=== PATIENT | female | born 1935 | race Caucasian/White ===

== ENCOUNTER 2017-01-19 13:58 | Emergency (ER) | payer MEDICARE, MEDICAID ==
[2017-01-19 13:59] VITALS: BMI 29.9
[2017-01-19 14:23] VITALS: PULSE 45; RESP 20
--- NOTE | 2017-01-19 16:04 | C.PDOC ---
History Of Present Illness 82-year-old female presents to the emergency department with complaints of back pain that radiates to right leg for the past four days. Patient states she is taking Tylenol and Celebrex with minimal relied. Patient denies falls/injuries , sensory changes in LEs, dysuria, urinary retention, bladder or bowel incontinence, fever. Time Seen by Provider: 01/19/17 14:40 Chief Complaint (Nursing): Lower Extremity Problem/Injury History Per: Patient History/Exam Limitations: no limitations Current Symptoms Are (Timing): Still Present Severity: Moderate Past Medical History Reviewed: Historical Data, Nursing Documentation, Vital Signs Vital Signs: Last Vital Signs Temp 97.4 F L 01/19/17 16:56 Pulse 45 L 01/19/17 16:56 Resp 20 01/19/17 16:56 BP 180/66 H 01/19/17 16:56 Pulse Ox 99 01/19/17 18:33 - Medical History PMH: Arthritis, Asthma, Bronchitis, Gastritis, HTN Surgical History: Hernia Repair, Tonsillectomy, - [facility] Procedures NAIL REMOVAL (06/23/14) Family History: States: No Known Family Hx - Social History Hx Tobacco Use: No Hx Alcohol Use: No Hx Substance Use: No - Immunization History Hx Tetanus Toxoid Vaccination: No Hx Influenza Vaccination: No Hx Pneumococcal Vaccination: No Review Of Systems Except As Marked, All Systems Reviewed And Found Negative. Constitutional: Negative for: Fever Cardiovascular: Negative for: Chest Pain, Palpitations Respiratory: Negative for: Cough, Shortness of Breath Gastrointestinal: Negative for: Nausea, Vomiting, Abdominal Pain, Diarrhea Musculoskeletal: Positive for: Back Pain, Leg Pain Skin: Negative for: Rash Physical Exam - Physical Exam Appears: Well, Non-toxic, No Acute Distress (mild-moderate pain) Skin: Warm, Dry, No Rash Head: Normacephalic Eye(s): bilateral: Normal Inspection Oral Mucosa: Moist Lips: Normal Appearing Neck: Normal, Normal ROM, No Midline Cervical Tenderness, No Paracervical Tenderness, No Step Off Deformity, Supple Cardiovascular: Rhythm Regular (Bradycardic), No Murmur Respiratory: Normal Breath Sounds, No Rales, No Rhonchi, No Wheezing Gastrointestinal/Abdominal: Normal Exam, Bowel Sounds, Soft, No Tenderness Back: No CVA Tenderness, No Vertebral Tenderness, Paraspinal Tenderness (Right) Extremity: Tenderness (Mild, gluteal.), No Pedal Edema, No Calf Tenderness Extremity: Bilateral: Atraumatic, Normal Color And Temperature, Normal ROM Neurological/Psych: Oriented x3, Normal Motor, Normal Sensation Gait: Steady ED Course And Treatment ECG: Interpreted By Me, Viewed By Me (sinus bradycardia 51bpm, normal axis, no acute ST/T wave changes) ECG Interpretation: No Acute Changes O2 Sat by Pulse Oximetry: 99 (RA) Pulse Ox Interpretation: Normal Progress Note: Patient given PO flexeril and IM toradol. EKG ordered and reviewed. Reevaluation Time: 16:45 Reassessment Condition: Improved (Patient reassessed, currently resting comfortably, in no pain/distress. She states her symptoms have improved and she feels better. Patient ambulating normally in ED. She is comfortable being discharged home, was given Rx for naprosyn and flexeril. She was instructed to follow up with PMD/clinic in 1-2 days, and she understands she should return to ED if symptoms return/worsen.) Disposition Counseled Patient/Family Regarding: Diagnosis, Need For Followup, Rx Given - Disposition Referrals: Theodore Rice MD [Medical Doctor] - Disposition: HOME/ ROUTINE Disposition Time: 16:45 Condition: STABLE Additional Instructions: SEGUIMIENTO CON BENITEZ DOCTOR / CLNICA EN 1-2 COLLINS USE LOS MEDICAMENTOS QUE ADRIAN NECESARIOS PARA EL DOLOR DEVUELVA A LA CHARLES DE EMERGENCIA SI TIENE CUALQUIER SNTOMA PREOCUPANTES Prescriptions: Cyclobenzaprine [Cyclobenzaprine HCl] 10 mg PO BID PRN #12 tab PRN Reason: pain/muscle Naproxen [Naprosyn Tab] 375 mg PO BID PRN #15 tab PRN Reason: pain Instructions: Sciatica (ED), Acute Low Back Pain (ED) Print Language: TRINIDADIAN - Clinical Impression Clinical Impression: Sciatica, Low back pain, Sinus bradycardia - Scribe Statement The provider has reviewed the documentation as recorded by the Angela José All medical record entries made by the Scribe were at my direction and personally dictated by me. I have reviewed the chart and agree that the record accurately reflects my personal performance of the history, physical exam, medical decision making, and the department course for this patient. I have also personally directed, reviewed, and agree with the discharge instructions and disposition.
[2017-01-19 16:57] VITALS: BP 180/66; TEMP 97.4
[2017-01-19 18:34] VITALS: O2SAT 99
--- NOTE | 2017-01-20 18:29 | CARD ---
APPROVED REPORT EKG Measurement Heart [id number] <Conclusion> Sinus bradycardia Moderate voltage criteria for LVH, may be normal variant Borderline ECG
== END 2017-01-19 17:06 | disposition home or self-care (01) ==
LOC: C.ER 13:58
DX: M54.41 Lumbago with sciatica, right side (principal); R00.1 Bradycardia, unspecified
CPT/HCPCS: 93005; 96372; 99284; J1885

== ENCOUNTER 2017-04-11 20:11 | Emergency (ER) | payer MEDICARE, MEDICAID ==
[2017-04-11 20:11] VITALS: BMI 29.9
[2017-04-11] MEDS ORDERED: Sodium Chloride 0.9% 1,000 ML IV ONE (20:41)
[2017-04-11 21:11] LABS: SQUAMOUS EPITHIAL 13 /hpf (0-5); URINE BILIRUBIN NEGATIVE (NEGATIVE); URINE CLARITY Hazy (Clear); URINE COLOR Yellow (YELLOW); URINE GLUCOSE (UA) NORMAL (Normal); URINE LEUKOCYTE ESTERASE 3+ Leu/uL (Negative); URINE NITRATE NEGATIVE (NEGATIVE); URINE PROTEIN 1+ mg/dL (NEGATIVE); URINE UROBILINOGEN NORMAL mg/dL (0.2-1.0)
[2017-04-11] MEDS ORDERED: Morphine 4 MG/ML VIAL ONE (21:15)
[2017-04-11 21:19] LABS: URINE BLOOD 1+ (NEGATIVE)
[2017-04-11 21:20] LABS: URINE BACTERIA FEW (<OCC)
[2017-04-11 21:26] LABS: BASO # 0.1 K/uL (0.0-0.2); BASO % 0.7 % (0.0-2.0); EOS # 0.1 K/uL (0.0-0.7); EOS % 0.9 % (0.0-4.0); HEMOGLOBIN 11.9 g/dL (11.0-16.0); LYMPH # 1.3 K/uL (1.0-4.3); LYMPH % 14.4 % (20.0-40.0); MEAN CELL VOLUME 85.3 fL (81.0-99.0); MEAN CORPUSCULAR HEMOGLOBIN 27.7 pg (27.0-31.0); MEAN CORPUSCULAR HGB CONC 32.5 g/dL (33.0-37.0); MEAN PLATELET VOLUME 12.1 fL (7.2-11.7); MONO # 0.6 K/uL (0.0-0.8); MONO % 6.1 % (0.0-10.0); NEUT # 7.3 K/uL (1.8-7.0); NEUT % 77.9 % (50.0-75.0); RBC 4.29 Mil/uL (3.80-5.20); RED CELL DISTRIBUTION WIDTH 16.5 % (11.5-14.5); WHITE BLOOD COUNT 9.3 K/uL (4.8-10.8)
[2017-04-11 21:33] LABS: ALBUMIN 4.1 g/dL (3.5-5.0)
[2017-04-11 21:36] LABS: ALB/GLOB RATIO 1.1 (1.0-2.1); AST/SGOT 33 U/L (14-36); GFR AFRICAN-AMERICAN > 60; GFR NON-AFRICAN AMERICAN > 60
[2017-04-11 21:37] LABS: ALT/SGPT 25 U/L (9-52); BLOOD UREA NITROGEN 14 mg/dL (7-17); CALCIUM 8.8 mg/dl (8.6-10.4); LIPASE 41 U/L (23-300)
[2017-04-11] MEDS ORDERED: Iodixanol 320 mg/ml 150 ml Bottle IV ONE (21:58)
--- NOTE | 2017-04-11 23:11 | CT ---
EXAM: CT Abdomen and Pelvis With Intravenous Contrast CLINICAL HISTORY: 82 years old, female; Pain; Abdominal pain; Flank; Left; Additional info: L abd x 2 days, h/o diverticulitis TECHNIQUE: Axial computed tomography images of the abdomen and pelvis with intravenous contrast. This CT exam was performed using one or more of the following dose reduction techniques: automated exposure control, adjustment of the mA and/or kV according to patient size, and/or use of iterative reconstruction technique. Coronal and sagittal reformatted images were created and reviewed. CONTRAST: 100 mL of visipaque administered intravenously. COMPARISON: CT - ABD PELVIS IV CONTRAST ONLY 09/20/2015 7:37:42 PM FINDINGS: Lower thorax: Minimal atelectasis/scarring. Mild cardiomegaly. Coronary artery calcifications. Moderate hiatal hernia.-containing stomach, fat, small fluid. ABDOMEN: Liver: Too small to characterize lesion. Gallbladder and bile ducts: No calcified stones. No ductal dilation. Pancreas: 0.7 x 0.7 x 0.7 cm hypodense lesion within tail, similar to minimally increased in size. Spleen: Few too small to characterize lesions within spleen. Few splenic calcifications. No splenomegaly. Adrenals: No mass. Kidneys and ureters: No mass. No hydronephrosis. Stomach and bowel: Scattered diverticula within colon. No associated inflammatory stranding. No definite mural thickening. No obstruction. Appendix: Normal caliber. No inflammation. PELVIS: Bladder: Unremarkable. Reproductive: Hysterectomy. 1.2 x 1.3 x 1.3 cm hypodense lesion within LEFT ovary. ABDOMEN and PELVIS: Intraperitoneal space: No significant fluid collection. No free air. Bones/joints: Mild degenerative changes of spine. No acute fracture. Soft tissues: Unremarkable. Vasculature: Mild atherosclerotic disease. No aneurysm. Lymph nodes: No pathologically enlarged lymph nodes. IMPRESSION: 1. Diverticulosis without definite CT evidence of diverticulitis. 2. Pancreatic lesion, indeterminate. Suggest nonemergent MRI. 3. Probable LEFT ovarian cyst. Suggest nonemergent ultrasound. 4. Incidental/non-acute findings are described above.
--- NOTE | 2017-04-11 23:26 | C.PDOC ---
History Of Present Illness 82 year old female presents to the ED with complaints of worsening left lower quadrant pain with associated nausea beginning this morning. Patient notes pain is worse then when she was diagnosed with Diverticulitis in September 2015. She denies vomiting, diarrhea, or fever. Time Seen by Provider: 04/11/17 20:36 Chief Complaint (Nursing): Abdominal Pain History Per: Patient History/Exam Limitations: no limitations Onset/Duration Of Symptoms: Hrs Current Symptoms Are (Timing): Still Present Location Of Pain/Discomfort: LLQ Radiation Of Pain To:: None Quality Of Discomfort: "Pain" Associated Symptoms: Nausea. denies: Fever, Chills, Vomiting, Diarrhea Recent travel outside of the [place]: No Additional History Per: Prior Records Abnormal Vaginal Bleeding: No Past Medical History Reviewed: Historical Data, Nursing Documentation, Vital Signs Vital Signs: Last Vital Signs Temp 97.9 F 04/11/17 23:47 Pulse 54 L 04/11/17 23:47 Resp 17 04/11/17 23:47 BP 166/66 H 04/11/17 23:47 Pulse Ox 97 04/11/17 23:47 - Medical History PMH: Arthritis, Asthma, Bronchitis, Gastritis, HTN Surgical History: Hernia Repair, Tonsillectomy, - [facility] Procedures NAIL REMOVAL (06/23/14) Family History: States: Unknown Family Hx - Social History Hx Tobacco Use: No Hx Alcohol Use: No Hx Substance Use: No - Immunization History Hx Tetanus Toxoid Vaccination: No Hx Influenza Vaccination: No Hx Pneumococcal Vaccination: No Review Of Systems Constitutional: Negative for: Fever, Chills Cardiovascular: Negative for: Chest Pain Respiratory: Negative for: Shortness of Breath Gastrointestinal: Positive for: Nausea, Abdominal Pain. Negative for: Vomiting , Diarrhea Physical Exam - Physical Exam Appears: Non-toxic, No Acute Distress Skin: Warm, Dry Head: Atraumatic Eye(s): bilateral: Normal Inspection, PERRL, EOMI Oral Mucosa: Moist Neck: Supple Chest: Symmetrical, No Deformity Cardiovascular: Rhythm Regular Respiratory: Normal Breath Sounds, No Rhonchi, No Wheezing Gastrointestinal/Abdominal: Soft, Tenderness (to the LLQ ), No Distention, No Guarding, No Rebound Neurological/Psych: Oriented x3 ED Course And Treatment - Laboratory Results Result Diagrams: 04/11/17 21:15 04/11/17 21:15 Lab Interpretation: Normal (ua dirty catch, no nitrite) O2 Sat by Pulse Oximetry: 99 (room air ) - CT Scan/US CT Abdomen and Pelvis With Intravenous Contrast Other Rad Studies (CT/US): Read By Radiologist, Radiology Report Reviewed CT/US Interpretation: IMPRESSION: 1. Diverticulosis without definite CT evidence of diverticulitis. 2. Pancreatic lesion, indeterminate. Suggest nonemergent MRI. 3. Probable LEFT ovarian cyst. Suggest nonemergent ultrasound. Reevaluation Time: 23:36 Reassessment Condition: Improved (pain resolved, no LLQ abd pain. + mild persistent superficial skin level discomfort L abd and no rash) Medical Decision Making Medical Decision Making: ? passed a renal stone, but no renal calculi noted in kidney nor bladder, but few RBC's in urine constipation/resolved small bowel issue No diverticulitis normal labs. Feels fine to go home alone Disposition Doctor Will See Patient In The: Office Counseled Patient/Family Regarding: Studies Performed, Diagnosis - Disposition Referrals: Theodore Rice MD [Medical Doctor] - Disposition: HOME/ ROUTINE Disposition Time: 23:39 Condition: GOOD Additional Instructions: sigue ibuprofeno 400-600 mg cada 6 horas azalia necessario Sigue con Dr. Rice azalia quieres. Childers evaluacion' y CAT Scan son NORMALES Instructions: Abdominal Pain (ED) Forms: [facility] (Arabic) Print Language: GERMAN - Clinical Impression Clinical Impression: Abdominal pain - Scribe Statement The provider has reviewed the documentation as recorded by the Scribe Magda Jackson All medical record entries made by the Scribe were at my direction and personally dictated by me. I have reviewed the chart and agree that the record accurately reflects my personal performance of the history, physical exam, medical decision making, and the department course for this patient. I have also personally directed, reviewed, and agree with the discharge instructions and disposition.
[2017-04-11 23:47] VITALS: BP 166/66; PULSE 54; RESP 17; TEMP 97.9
[2017-04-12 02:54] VITALS: O2SAT 99
== END 2017-04-11 23:47 | disposition home or self-care (01) ==
LOC: C.ER 20:11
DX: R10.32 Left lower quadrant pain (principal)
CPT/HCPCS: 74177; 80053; 81001; 83690; 85025; 96361; 96374; 96375; 99284; J1885; J2270; J7040; Q9965

== ENCOUNTER 2017-08-28 15:19 | Emergency (ER) | payer MEDICARE, MEDICAID ==
[2017-08-28 15:30] VITALS: BMI 33.2
--- NOTE | 2017-08-28 16:04 | C.PDOC ---
History Of Present Illness 82 yr old female presents to the ER with complaints of sudden onset of pain, redness and swelling to the left thumb which started today. Patient reports history of similar symptoms several years ago and had gout in the hand before. Patient currently denies trauma, insect bite, fever, chills, arm pain, weakness or numbness. Time Seen by Provider: 08/28/17 15:33 Chief Complaint (Nursing): Upper Extremity Problem/Injury History Per: Patient History/Exam Limitations: no limitations Onset/Duration Of Symptoms: Sudden Onset (Today) Past Medical History Reviewed: Historical Data, Nursing Documentation, Vital Signs Vital Signs: Last Vital Signs Temp 97.8 F 08/28/17 16:44 Pulse 59 L 08/28/17 16:49 Resp 18 08/28/17 16:49 BP 188/68 H 08/28/17 16:49 Pulse Ox 99 08/28/17 19:38 - Medical History PMH: Arthritis, Asthma, Bronchitis, Gastritis, HTN Surgical History: Hernia Repair, Tonsillectomy, - [facility] Procedures NAIL REMOVAL (06/23/14) Family History: States: No Known Family Hx - Social History Hx Tobacco Use: No Hx Alcohol Use: No Hx Substance Use: No - Immunization History Hx Tetanus Toxoid Vaccination: No Hx Influenza Vaccination: No Hx Pneumococcal Vaccination: No Review Of Systems Except As Marked, All Systems Reviewed And Found Negative. Constitutional: Negative for: Fever, Chills Musculoskeletal: Positive for: Other ((+) Pain, redness and swelling to the left thumb). Negative for: Arm Pain Skin: Positive for: Other (redness) Neurological: Negative for: Weakness, Numbness Physical Exam - Physical Exam Appears: Non-toxic, No Acute Distress Skin: Warm, Dry, No Rash Head: Atraumatic, Normacephalic Eye(s): bilateral: Normal Inspection Oral Mucosa: Moist Extremity: Normal ROM, Capillary Refill (<2 secs), No Deformity, Other (Base of left thumb with (+) erythema, mild swelling and tenderness.) Pulses: Left Radial: Normal, Right Radial: Normal Neurological/Psych: Oriented x3, Normal Speech, Normal Motor, Normal Sensation Gait: Steady ED Course And Treatment O2 Sat by Pulse Oximetry: 99 (RA) Pulse Ox Interpretation: Normal Medical Decision Making Medical Decision Making: PLAN: * Colchicine Po * Prednisone PO * Toradol IM Physical exam is suggestive of gout. There is no evidence of injury or fracture at this time, so no diagnostic is warranted at this time. Disposition - Disposition Referrals: [facility] [Outside] Disposition: HOME/ ROUTINE Disposition Time: 16:23 Condition: GOOD Additional Instructions: Follow up with the medical doctor within 1-2 days. Return if worsened. Prescriptions: Colchicine [Colcrys] 0.6 mg PO TID #6 tablet Ibuprofen [Motrin] 600 mg PO TID #21 tab predniSONE [Prednisone] 20 mg PO BID #10 tab Instructions: Gout (ED) Forms: [employer] (Cuban) - Clinical Impression Clinical Impression: Gout - PA / REAL ESTATE LEGAL SECRETARY / Resident Statement MD/DO has reviewed & agrees with the documentation as recorded. - Scribe Statement The provider has reviewed the documentation as recorded by the Scribe Arianna Garcia All medical record entries made by the Scribe were at my direction and personally dictated by me. I have reviewed the chart and agree that the record accurately reflects my personal performance of the history, physical exam, medical decision making, and the department course for this patient. I have also personally directed, reviewed, and agree with the discharge instructions and disposition.
[2017-08-28 16:45] VITALS: RESP 18; TEMP 97.8
[2017-08-28 16:50] VITALS: BP 188/68; PULSE 59; O2SAT 99
== END 2017-08-28 16:50 | disposition home or self-care (01) ==
LOC: C.ER 15:19
DX: M10.9 Gout, unspecified (principal); I10 Essential (primary) hypertension
CPT/HCPCS: 96372; 99284; J1885

== ENCOUNTER 2017-11-19 16:45 | Emergency (ER) | payer MEDICARE, MEDICAID ==
[2017-11-19 16:45] VITALS: BMI 33.2
[2017-11-19 17:01] VITALS: RESP 20; O2SAT 98
--- NOTE | 2017-11-19 18:08 | C.PDOC ---
History Of Present Illness <DolaNancyerika Pasquale - Last Filed: 11/19/17 22:51> <Jordan Huston M - Last Filed: 11/24/17 07:13> Patient is a 82 year old female Arthritis, Asthma, Bronchitis, Gastritis, HTN, unknown cardiac disease who presents to the ED with complaints of diffuse lower abdominal pain (L>R) with radiation to the left flank region. Patient denies chest pain,, palpitations, fever, chills, nausea, vomiting. Patient reports that she has seen by her PCP for the same complaints, who told her to come to the ED. (Abdoul Rendon) History Per: Patient History/Exam Limitations: no limitations Onset/Duration Of Symptoms: Hrs Current Symptoms Are (Timing): Still Present Severity: Mild Pain Scale Rating Of: 3 <JusticeNancyerika Pasquale - Last Filed: 11/19/17 22:51> <Jordan Huston M - Last Filed: 11/24/17 07:13> Time Seen by Provider: 11/19/17 17:33 Chief Complaint (Nursing): Back Pain Past Medical History - Medical History PMH: Arthritis, Asthma, Bronchitis, Gastritis, HTN Denies: Chronic Kidney Disease Surgical History: Hernia Repair, Tonsillectomy, Family History: States: Unknown Family Hx - Social History Hx Tobacco Use: No Hx Alcohol Use: No Hx Substance Use: No - Immunization History Hx Tetanus Toxoid Vaccination: No Hx Influenza Vaccination: Yes Hx Pneumococcal Vaccination: No <DolaNancy culperika Pasquale - Last Filed: 11/19/17 22:51> Vital Signs: Last Vital Signs Temp 97.8 F 11/19/17 22:28 Pulse 58 L 11/19/17 22:28 Resp 20 11/19/17 22:28 BP 175/46 H 11/19/17 22:28 Pulse Ox 98 11/19/17 22:51 - [facility] Procedures NAIL REMOVAL (06/23/14) Review Of Systems Cardiovascular: Negative for: Chest Pain Respiratory: Negative for: Cough Gastrointestinal: Positive for: Abdominal Pain Genitourinary: Negative for: Dysuria Musculoskeletal: Negative for: Neck Pain Neurological: Negative for: Weakness <Jordan Huston M - Last Filed: 11/24/17 07:13> Physical Exam - Physical Exam Skin: Normal Color Head: Atraumatic Neck: Normal, Normal ROM Chest: Symmetrical Cardiovascular: Rhythm Regular Respiratory: Normal Breath Sounds Gastrointestinal/Abdominal: Normal Exam, Bowel Sounds, Tenderness ((+) llq and rlq tenderness, no guarding, no rebound ) Back: Normal Inspection Extremity: Normal ROM Neurological/Psych: Oriented x3, Normal Speech <Jordan Huston M - Last Filed: 11/24/17 07:13> ED Course And Treatment O2 Sat by Pulse Oximetry: 98 <Abdoul Rendon E - Last Filed: 11/19/17 22:51> - Laboratory Results Result Diagrams: 11/19/17 18:48 11/19/17 18:48 - Radiology CXR: Interpreted by Me, Viewed By Me CXR Interpretation: Yes: No Acute Disease - CT Scan/US Abdomen/pelvis Other Rad Studies (CT/US): Interpreted By Me, Read By Radiologist CT/US Interpretation: EXAM: CT Abdomen and Pelvis With Intravenous Contrast. CLINICAL HISTORY: 82 years old, female; Pain; Abdominal pain; Generalized; Additional info: Diffuse abdominal pain and. left flank pain. TECHNIQUE: Axial computed tomography images of the abdomen and pelvis with intravenous contrast. All CT. scans at this facility use one or more dose reduction techniques, viz.: automated exposure control;. ma/kV adjustment per patient size (including targeted exams where dose is matched to indication; i.e. head) ; or iterative reconstruction technique. Coronal and sagittal reformatted images were created and reviewed. CONTRAST: 100 mL of [id number] administered intravenously. COMPARISON: CT - ABD PELVIS IV CONTRAST ONLY 2015-09-20 19:37. FINDINGS: Lower thorax: Minimal atelectasis/scarring. Coronary artery calcifications. Moderate hiatal hernia. containing stomach, fat and fluid, stable. ABDOMEN: Liver: Subcentimeter hypodense lesion, stable. Gallbladder and bile ducts: No calcified stones. No ductal dilation. Pancreas: Subcentimeter hypodense lesion within tail, grossly stable. No ductal dilation Spleen: Few calcifications. No splenomegaly. Adrenals: No mass. Kidneys and ureters: No mass. No hydronephrosis. Stomach and bowel: Multiple scattered diverticula within colon. [id number] mural thickening. short segment of distal descending/proximal sigmoid colon. Mild stranding within adjacent fat. No. obstruction. Appendix: No findings to suggest acute appendicitis. PELVIS : Bladder: Minimal air within lumen. Reproductive: Hysterectomy. 1.3 x 1.3 x 1.4 hypodense lesion within LEFT ovary. ABDOMEN and PELVIS: Intraperitoneal space: No significant fluid collection. No free air. Bones/joints: Mild degenerative changes of spine. No acute fracture. Soft tissues: Small umbilical hernia containing fat. Vasculature: Mild atherosclerotic disease. No aneurysm. Lymph nodes: No pathologically enlarged lymph nodes. IMPRESSION: 1. Findings compatible with acute diverticulitis. Recommend endoscopy following resolution. 2. Air within bladder lumen. DDX: Recent instrumentation or cystitis. 3. Pancreatic lesion, grossly stable. 4. Probable LEFT ovarian cyst. Suggest nonemergent ultrasound to ensure stability. 5. Incidental/non- acute findings are described above. Thank you for allowing us to participate in the care of your patient. <Jordan Huston - Last Filed: 11/24/17 07:13> Medical Decision Making <Abdoul Rendon - Last Filed: 11/19/17 22:51> <Jordan Huston - Last Filed: 11/24/17 07:13> Medical Decision Making: On reassessment, patient diagnosed with diverticulitis and does not want to stay in hospital and refuses admission. Patient will attempt outpatient management and advised to follow up with PMD in 2 days and to return to ED if symptoms worsen. Patient sent home with discharge instructions for cipro, tramadol, and flagyl. (Jordan Huston) Disposition <Abdoul Rendon - Last Filed: 11/19/17 22:51> Counseled Patient/Family Regarding: Studies Performed, Diagnosis, Need For Followup, Rx Given - Disposition Disposition Time: 20:11 <Jordan Huston - Last Filed: 11/24/17 07:13> - Disposition Referrals: Theodore Rice MD [Medical Doctor] - Disposition: HOME/ ROUTINE Condition: STABLE Additional Instructions: follow up with your doctor in 2 days call to make an appointment take medications as prescribed return to hospital if symptoms worsens or progress you have refused hospital admission and state you would like to attempt outpatient treatment for your diverticulitis Prescriptions: Ciprofloxacin HCl [Cipro] 500 mg PO BID #20 tab Metronidazole [Flagyl] 500 mg PO BID #20 tablet traMADol [Ultram] 50 mg PO TID PRN #12 tab PRN Reason: Pain, Moderate (4-7) Instructions: Diverticulitis (DC) Forms: [facility] (Welsh), General Discharge Instructions - Clinical Impression Clinical Impression: Diverticulitis
[2017-11-19] MEDS ORDERED: Iohexol 240 (50 ml) ONE (18:51)
[2017-11-19 18:52] LABS: BASO % 0.3 % (0.0-2.0); EOS # 0.1 K/uL (0.0-0.7); EOS % 1.1 % (0.0-4.0); HEMOGLOBIN 11.7 g/dL (11.0-16.0); LYMPH # 1.3 K/uL (1.0-4.3); MEAN CORPUSCULAR HEMOGLOBIN 29.3 pg (27.0-31.0); MEAN CORPUSCULAR HGB CONC 33.3 g/dL (33.0-37.0); MEAN PLATELET VOLUME 11.5 fL (7.2-11.7); MONO % 9.6 % (0.0-10.0); NEUT # 7.7 K/uL (1.8-7.0); RBC 3.99 Mil/uL (3.80-5.20); RED CELL DISTRIBUTION WIDTH 15.6 % (11.5-14.5); WHITE BLOOD COUNT 10.2 K/uL (4.8-10.8)
[2017-11-19] MEDS ORDERED: Iohexol 300 100 ML IJ ONE (18:59)
[2017-11-19 19:03] LABS: SQUAMOUS EPITHIAL 8 /hpf (0-5); URINE BACTERIA FEW (<OCC); URINE BILIRUBIN NEGATIVE (NEGATIVE); URINE BLOOD 1+ (NEGATIVE); URINE CLARITY Hazy (Clear); URINE COLOR Yellow (YELLOW); URINE GLUCOSE (UA) NORMAL (Normal); URINE LEUKOCYTE ESTERASE 3+ Leu/uL (Negative); URINE PROTEIN 1+ mg/dL (NEGATIVE)
[2017-11-19 19:05] LABS: ALB/GLOB RATIO 1.1 (1.0-2.1); ALBUMIN 4.1 g/dL (3.5-5.0); ALT/SGPT 26 U/L (9-52); AST/SGOT 25 U/L (14-36); BLOOD UREA NITROGEN 14 mg/dL (7-17); CALCIUM 8.7 mg/dl (8.6-10.4); GFR AFRICAN-AMERICAN > 60; GFR NON-AFRICAN AMERICAN > 60; LIPASE 65 U/L (23-300)
--- NOTE | 2017-11-19 21:36 | CT ---
EXAM: CT Abdomen and Pelvis With Intravenous Contrast CLINICAL HISTORY: 82 years old, female; Pain; Abdominal pain; Generalized; Additional info: Diffuse abdominal pain and left flank pain TECHNIQUE: Axial computed tomography images of the abdomen and pelvis with intravenous contrast. All CT scans at this facility use one or more dose reduction techniques, viz.: automated exposure control; ma/kV adjustment per patient size (including targeted exams where dose is matched to indication; i.e. head); or iterative reconstruction technique. Coronal and sagittal reformatted images were created and reviewed. CONTRAST: 100 mL of [id number] administered intravenously. COMPARISON: CT - ABD PELVIS IV CONTRAST ONLY 2015-09-20 19:37 FINDINGS: Lower thorax: Minimal atelectasis/scarring. Coronary artery calcifications. Moderate hiatal hernia containing stomach, fat and fluid, stable. ABDOMEN: Liver: Subcentimeter hypodense lesion, stable. Gallbladder and bile ducts: No calcified stones. No ductal dilation. Pancreas: Subcentimeter hypodense lesion within tail, grossly stable. No ductal dilation. Spleen: Few calcifications. No splenomegaly. Adrenals: No mass. Kidneys and ureters: No mass. No hydronephrosis. Stomach and bowel: Multiple scattered diverticula within colon. Ceiu-hj-qshjiopt mural thickening short segment of distal descending/proximal sigmoid colon. Mild stranding within adjacent fat. No obstruction. Appendix: No findings to suggest acute appendicitis. PELVIS: Bladder: Minimal air within lumen. Reproductive: Hysterectomy. 1.3 x 1.3 x 1.4 hypodense lesion within LEFT ovary. ABDOMEN and PELVIS: Intraperitoneal space: No significant fluid collection. No free air. Bones/joints: Mild degenerative changes of spine. No acute fracture. Soft tissues: Small umbilical hernia containing fat. Vasculature: Mild atherosclerotic disease. No aneurysm. Lymph nodes: No pathologically enlarged lymph nodes. IMPRESSION: 1. Findings compatible with acute diverticulitis. Recommend endoscopy following resolution. 2. Air within bladder lumen. DDX: Recent instrumentation or cystitis. 3. Pancreatic lesion, grossly stable. 4. Probable LEFT ovarian cyst. Suggest nonemergent ultrasound to ensure stability. 5. Incidental/non-acute findings are described above.
[2017-11-19] MEDS ORDERED: metroNIDAZOLE IV 500 mg/100 ml 500 MG/100 ML BAG IVPB STA (21:39)
[2017-11-19] MEDS ORDERED: metroNIDAZOLE IV 500 mg/100 ml 500 MG/100 ML BAG ONE (21:50)
[2017-11-19 22:29] VITALS: BP 175/46; PULSE 58; TEMP 97.8
--- NOTE | 2017-11-20 06:58 | RAD ---
Chest x-ray two views History: Shortness of breath. Comparison: 07/10/2015 Findings: Mild venous congestion. Patchy increased markings at both lung bases ; left greater than right. Mammilated bilateral hemidiaphragms. Right hilar prominence. Tortuous aorta. Calcification at the aortic knob. Degenerative changes in the spine and shoulders. Impression: Mild venous congestion. Patchy increased markings at both lung bases ; left greater than right. Mammilated bilateral hemidiaphragms. Right hilar prominence. Tortuous aorta. Calcification at the aortic knob.
== END 2017-11-19 22:28 | disposition home or self-care (01) ==
LOC: C.ER 16:45
DX: K57.92 Diverticulitis of intestine, part unspecified, without perforation or abscess without bleeding (principal)
CPT/HCPCS: 71046; 74177; 80053; 81001; 83690; 84484; 85025; 87086; 96365; 96375; 99284; J0696; Q9967

== ENCOUNTER 2018-03-24 15:35 | Emergency (ER) | payer MEDICARE, MEDICAID ==
[2018-03-24 15:54] VITALS: BMI 30.2
[2018-03-24 15:57] VITALS: BP 145/93; PULSE 69; RESP 20; TEMP 98.2; O2SAT 96
--- NOTE | 2018-03-24 16:28 | C.PDOC ---
History Of Present Illness 83-year-old female presents to the ED with complaints of dysuria and urinary frequency for 2 days. She denies any fever, nausea, vomiting, or other associated symptoms. Time Seen by Provider: 03/24/18 16:00 Chief Complaint (Nursing): Female Genitourinary History Per: Patient History/Exam Limitations: no limitations Onset/Duration Of Symptoms: Days (x2) Current Symptoms Are (Timing): Still Present Past Medical History Reviewed: Historical Data, Nursing Documentation, Vital Signs Vital Signs: Last Vital Signs Temp 98.2 F 03/24/18 15:54 Pulse 69 03/24/18 15:54 Resp 20 03/24/18 15:54 BP 145/93 H 03/24/18 15:54 Pulse Ox 96 03/24/18 16:55 - Medical History PMH: Arthritis, Asthma, Bronchitis, Gastritis, HTN Denies: Chronic Kidney Disease Surgical History: Hernia Repair, Tonsillectomy, - [facility] Procedures NAIL REMOVAL (06/23/14) Family History: States: Unknown Family Hx - Social History Hx Tobacco Use: No Hx Alcohol Use: No Hx Substance Use: No - Immunization History Hx Tetanus Toxoid Vaccination: No Hx Influenza Vaccination: Yes Hx Pneumococcal Vaccination: No Review Of Systems Except As Marked, All Systems Reviewed And Found Negative. Constitutional: Negative for: Fever, Chills Gastrointestinal: Negative for: Nausea, Vomiting, Abdominal Pain Genitourinary: Positive for: Dysuria, Frequency Physical Exam - Physical Exam Appears: Non-toxic, No Acute Distress Skin: Warm, Dry, No Rash Head: Atraumatic, Normacephalic Eye(s): bilateral: Normal Inspection Oral Mucosa: Moist Neck: Normal ROM Chest: Symmetrical Cardiovascular: Rhythm Regular, No Murmur Respiratory: Normal Breath Sounds, No Accessory Muscle Use, Other (NARD) Gastrointestinal/Abdominal: Soft, No Tenderness, No Distention, No Guarding Extremity: Bilateral: Atraumatic, Normal ROM Pulses: Left Radial: Normal, Right Radial: Normal Neurological/Psych: Oriented x3, Normal Speech ED Course And Treatment O2 Sat by Pulse Oximetry: 96 (RA) Pulse Ox Interpretation: Normal Medical Decision Making Medical Decision Making: Impression: Dysuria and frequency, r/o UTI Initial Plan: --Urinalysis --Urine culture Disposition Counseled Patient/Family Regarding: Studies Performed, Diagnosis, Need For Followup, Rx Given - Disposition Referrals: [facility] [Outside] [facility] [Outside] Disposition: HOME/ ROUTINE Disposition Time: 17:25 Condition: IMPROVED Prescriptions: Nitrofurantoin Macrocrystals [Macrobid] 100 mg PO BID #10 cap Phenazopyridine HCl [Pyridium] 200 mg PO BID #6 tablet Instructions: Urinary Tract Infection, Adult (DC) Forms: [employer] (Salvadorean) Print Language: SERBIAN - Clinical Impression Clinical Impression: UTI (urinary tract infection) - Scribe Statement The provider has reviewed the documentation as recorded by the Scribe (Sonja Murcia) Provider Attestation: All medical record entries made by the Scribe were at my direction and personally dictated by me. I have reviewed the chart and agree that the record accurately reflects my personal performance of the history, physical exam, medical decision making, and the department course for this patient. I have also personally directed, reviewed, and agree with the discharge instructions and disposition.
[2018-03-24 17:21] LABS: SQUAMOUS EPITHIAL 3 /hpf (0-5); URINE BACTERIA RARE (<OCC); URINE BILIRUBIN NEGATIVE (NEGATIVE); URINE BLOOD NEGATIVE (NEGATIVE); URINE CLARITY Hazy (Clear); URINE COLOR Yellow (YELLOW); URINE GLUCOSE (UA) NORMAL (Normal); URINE LEUKOCYTE ESTERASE 3+ Leu/uL (Negative); URINE PROTEIN NEGATIVE (NEGATIVE); URINE UROBILINOGEN NORMAL mg/dL (0.2-1.0)
== END 2018-03-24 17:31 | disposition home or self-care (01) ==
LOC: C.ER 15:35
DX: N39.0 Urinary tract infection, site not specified (principal)